=== PATIENT | male | born 1960 | race Native Hawaiian/Other Pacific Islander ===

== ENCOUNTER 2019-07-01 19:14 | Emergency (ER) | payer OTHER ==
[~2019-07-01] VITALS: Ht 182.9 cm; Wt 133.4 kg
[2019-07-01 19:48] LABS: PLATELET COUNT 262 K/uL (142-355); POTASSIUM 4.1 mmol/L (3.6-5.2)
[2019-07-01 20:38] VITALS: BP 119/78; TEMP 98.6
[2019-07-01] MEDS ORDERED: ATOR20TA2 PO (21:14)
[2019-07-01] MEDS ORDERED: BUSPIRONE5 MG PO (21:14)
[2019-07-01] MEDS ORDERED: LISI20TA11 PO (21:15)
[2019-07-01] MEDS ORDERED: SEROQUEL25 MG PO (21:16)
[2019-07-01] MEDS ORDERED: HYDR5TAB9 PO (21:16)
[2019-07-01] MEDS ORDERED: SERT50TA PO (21:17)
[2019-07-01] MEDS ORDERED: ACCU CHECK SC (21:21)
[2019-07-01] MEDS ORDERED: ADVAIR INH (21:23)
[2019-07-01] MEDS ORDERED: IPRATROPIUM/ INH (21:27)
[2019-07-01] MEDS ORDERED: TYLENOL325 MG PO (21:28)
[2019-07-12] MEDS ORDERED: RISP0.25 PO (20:04)
[2019-07-12] MEDS ORDERED: DULO30CA PO ×2 (20:04)
[2019-07-12] MEDS ORDERED: LAMICTAL25 MG PO (20:04)
[2019-07-12] MEDS ORDERED: BACL10TA4 PO (20:05)
[2019-07-12] MEDS ORDERED: BUSP5TAB2 PO (20:05)
== END 2019-07-01 20:40 | disposition home or self-care (01) ==
LOC: ED 19:14
PROVIDERS: Emergency Medicine
DX: R46.89 Other symptoms and signs involving appearance and behavior (principal); R00.0 Tachycardia, unspecified; Z04.6 Encounter for general psychiatric examination, requested by authority
CPT/HCPCS: 80053; 81000; 85027; 87086; 87088; 93005; 99285